=== PATIENT | female | born 2000 | race Caucasian/White ===

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

== ENCOUNTER → 2022-01-09 18:54 | Observation (INO) ==
[~2022-01-09 18:54] MED LIST: EPHEDrine 50 MG/ML VIAL IVP PRN; Epidural Premix (fent/bupiv) 110 ML EP SCH
== END | disposition home or self-care (01) ==
LOC: 1NENULAB
PROVIDERS: ADMIT Student in an Organized Health Care Education/Training Program; ATTEND Student in an Organized Health Care Education/Training Program

== ENCOUNTER 2022-01-10 19:05 | Inpatient (IN) ==
[~2022-01-10 19:05] MED LIST changes: +*HR* Nalbuphine 10 MG/ML AMPUL IV PRN; -EPHEDrine 50 MG/ML VIAL IVP PRN; -Epidural Premix (fent/bupiv) 110 ML EP SCH; +Famotidine 20 MG/2 ML VIAL IVP PRN; +Metoclopramide 10 MG/2 ML VIAL IVP PRN; +Naloxone 0.4 MG/ML INJ IVP PRN
[2022-01-10] MEDS ORDERED: Penicillin G Potassium 5,000,000 UNIT in 0.9 % Sodium Chloride Mini Bag 100 ML IVPB ONE (19:07)
[2022-01-10 19:38] LABS: Basophils # 0.1 K/mcL (0.0-0.2); Basophils % 0.4 %; Eosinophils # 0.2 K/mcL (0.0-0.6); Eosinophils % 1.4 %; Hematocrit 37.2 % (35.3-44.9); Hemoglobin 12.3 g/dL (11.5-15.4); Immature Granulocytes % 2.5 % (0-4); Lymphocytes # 2.1 K/mcL (0.6-4.6); Lymphocytes % 17.4 %; Mean Corpuscular HGB Conc 33.1 g/dL (31.6-35.5); Mean Corpuscular Hemoglobin 30.4 pg (28.0-33.3); Mean Corpuscular Volume 92.1 fL (83.0-100.0); Mean Platelet Volume 9.8 fL (9.4-12.4); Monocytes % 8.2 %; Neutrophils # 8.3 K/mcL (1.6-8.9); Platelet Count 246 K/mcL (140-400); Red Blood Count 4.04 M/mcL (3.82-4.97); Red Cell Distribution Width 15.9 % (11.5-14.5); Segmented Neutrophils % 70.1 %; White Blood Count 11.8 K/mcL (4.3-11.1)
[2022-01-10] MEDS ORDERED: Oxytocin 30 UNIT/503 ML BAG IVC SCH (23:00)
[2022-01-11] MEDS ORDERED: EPHEDrine 50 MG/ML VIAL IVP PRN (00:23)
[2022-01-11] MEDS ORDERED: Epidural Premix (fent/bupiv) 110 ML EP ONE (00:34)
[2022-01-11 01:30] LABS: Amphetamine Screen,Urine Negative ng/mL (Cutoff=1000); Barbiturate Screen,Urine Negative ng/mL (Cutoff=200); Benzodiazepines Screen,Urine Negative ng/mL (Cutoff=200); Cannabinoid Screen,Urine Negative ng/mL (Cutoff = 50); Cocaine Screen,Urine Negative ng/mL (Cutoff= 300); Opiate Screen,Urine Negative ng/mL (Cutoff=300); Phencyclidine Screen,Urine Negative ng/mL (Cutoff=25)
[2022-01-11] MEDS: Ringers Solution, Lactated 1,000 ML IVC SCH ×3 (07:30→13:11)
[2022-01-11] MEDS: Epidural Premix (fent/bupiv) 110 ML EP SCH ×2 (07:30→13:10)
[2022-01-11] MEDS: Ondansetron 4 MG/2 ML VIAL IVP PRN ×2 (09:09→15:16)
[2022-01-11] MEDS: Penicillin G Potassium 2,500,000 UNIT/105 ML MLS IVPB SCH ×4 (09:10→13:10)
[2022-01-11] MEDS ORDERED: Ropivacaine/PF 0.2% 20 ML VIAL ONE (12:23)
[2022-01-11] MEDS ORDERED: Ropivacaine/PF 0.5% 30 ML VIAL ONE (12:23)
[2022-01-11] MEDS ORDERED: Ibuprofen 600 MG TABLET PO ONE (15:26)
[2022-01-11] MEDS ORDERED: Lanolin 7 G OINT...G. TP PRN (18:33)
[2022-01-11] MEDS ORDERED: Oxytocin 30 UNIT/503 ML BAG IVC SCH (18:33)
[2022-01-11] MEDS ORDERED: Rho Immune Globulin 1,500 UNIT SYRINGE IM PRN (18:33)
[2022-01-11] MEDS ORDERED: *HR* OxyCODONE Immed Rel 5 MG TABLET PO PRN (18:33)
[2022-01-11] MEDS ORDERED: Ondansetron ODT 4 MG TAB.RAPDIS SL PRN (18:33)
[2022-01-11] MEDS: Acetaminophen 325 MG TABLET PO SCH (18:41)
[2022-01-11] MEDS: Benzocaine/Menthol 56 GM AEROSOL SPRAY TP PRN (18:42)
[2022-01-11 21:44] LABS: Basophils % 0.2 %; Hematocrit 24.6 % (35.3-44.9); Immature Granulocytes % 0.8 % (0-4); Lymphocytes # 1.1 K/mcL (0.6-4.6); Lymphocytes % 5.9 %; Mean Corpuscular HGB Conc 33.3 g/dL (31.6-35.5); Mean Corpuscular Hemoglobin 30.8 pg (28.0-33.3); Mean Corpuscular Volume 92.5 fL (83.0-100.0); Mean Platelet Volume 10.1 fL (9.4-12.4); Monocytes # 1.1 K/mcL (0.0-1.3); Monocytes % 5.6 %; Neutrophils # 16.9 K/mcL (1.6-8.9); Platelet Count 184 K/mcL (140-400); Red Blood Count 2.66 M/mcL (3.82-4.97); Red Cell Distribution Width 15.8 % (11.5-14.5); Segmented Neutrophils % 87.5 %
[2022-01-11 21:45] LABS: Hemoglobin 8.2 g/dL (11.5-15.4); White Blood Count 19.3 K/mcL (4.3-11.1)
[2022-01-11] MEDS: Ibuprofen 600 MG TABLET PO SCH (23:31)
[2022-01-12] MEDS: Ibuprofen 600 MG TABLET PO SCH ×2 (06:32→16:21)
[2022-01-12] MEDS: Acetaminophen 325 MG TABLET PO SCH ×2 (06:33→16:21)
[2022-01-12 06:38] VITALS: BP 109/66; PULSE 109; TEMP 97.8; O2SAT 99
[2022-01-12] MEDS: Benzocaine/Menthol 56 GM AEROSOL SPRAY TP PRN (08:16)
[2022-01-12] MEDS ORDERED: NON-FORMULARY MEDICATION 1 EACH EACH (Ferrous Sulfate 324 MG) PO SCH (09:00)
[2022-01-12] MEDS ORDERED: NON-FORMULARY MEDICATION 1 EACH EACH (Prenatal Vitamin Tablet 1 TAB) PO SCH (09:00)
[2022-01-12] MEDS ORDERED: Prenatal Vit/FA 1 EACH TABLET PO SCH (09:00)
[2022-01-12 09:30] LABS: Basophils % 0.2 %; Eosinophils # 0.1 K/mcL (0.0-0.6); Eosinophils % 0.5 %; Hematocrit 21.3 % (35.3-44.9); Hemoglobin 7.1 g/dL (11.5-15.4); Immature Granulocytes % 1.5 % (0-4); Lymphocytes # 2.6 K/mcL (0.6-4.6); Lymphocytes % 19.2 %; Mean Corpuscular HGB Conc 33.3 g/dL (31.6-35.5); Mean Corpuscular Hemoglobin 31.4 pg (28.0-33.3); Mean Corpuscular Volume 94.2 fL (83.0-100.0); Mean Platelet Volume 9.7 fL (9.4-12.4); Monocytes # 1.1 K/mcL (0.0-1.3); Monocytes % 8.1 %; Neutrophils # 9.7 K/mcL (1.6-8.9); Platelet Count 170 K/mcL (140-400); Red Blood Count 2.26 M/mcL (3.82-4.97); Red Cell Distribution Width 15.9 % (11.5-14.5); Segmented Neutrophils % 70.5 %; White Blood Count 13.8 K/mcL (4.3-11.1)
== END 2022-01-12 17:10 | disposition home or self-care (01) | DRG 806 ==
LOC: 1NENULAB → 1NENUOBS 01-11 18:33
PROVIDERS: ADMIT Registered Nurse; ATTEND Registered Nurse